=== PATIENT | female | born 2000 | race African-American/Black ===

== ENCOUNTER 2023-03-25 04:18 | Inpatient (IN) ==
[2023-03-25 04:31] VITALS: BMI 43.0
[2023-03-25 04:41] LABS: AMNISURE ROM TEST THERE IS A RUPTURE (NO RUPTURE)
[2023-03-25] MEDS ORDERED: D5 LR + PITOCIN 10 UNITS/L 10 UNITS/1,000 ML BAG IV PRN (05:30)
[2023-03-25] MEDS ORDERED: D5 1/2 NS 1,000 ML 1,000 ML IV ONE (05:41)
[2023-03-25] MEDS ORDERED: PITOCIN ONE (05:41)
[2023-03-25] MEDS ORDERED: D5 1/2 NS 1,000 mL + PITOCIN 20 UNITS/L IV 20 UNITS/1,000 ML BAG IV ONE (05:42)
[2023-03-25] MEDS ORDERED: D5 LR + PITOCIN 10 UNITS/L 10 UNITS/1,000 ML BAG IV ONE (05:42)
[2023-03-25] MEDS ORDERED: BETADINE SOLN ONE (05:42)
[2023-03-25] MEDS ORDERED: PITOCIN IVP ONE (06:12)
[2023-03-25] MEDS ORDERED: LR 1,000 ML IV 1,000 ML IV ONE (06:12)
[2023-03-25] MEDS ORDERED: REGLAN INJ 10 MG VIAL IVP PRN (06:12)
[2023-03-25] MEDS ORDERED: ZOFRAN INJ 4 MG VIAL IVP PRN (06:12)
[2023-03-25] MEDS ORDERED: STADOL INJ ONE ×2 (06:54→09:50)
[2023-03-25] MEDS: STADOL INJ IVP PRN ×2 (06:55→09:55)
[2023-03-25] MEDS ORDERED: D5 1/2 NS 1,000 ML 1,000 ML IV SCH (07:00)
--- NOTE | 2023-03-25 07:09 | DR.OB ---
OB Quick Note - Assessment/Plan Assessment/Plan: L&D 03/25/23 at 6:35am S-No complaint. O-Afebrile,VSS MIJ=024 with good LTV, +accel, no decel. CTX=q 1 1/2 to 3 min., mod. by palpation CVX=4cm/50%/-1/VTX SROM with clear fluid. IUPC and FSE placed. A-IUP at 40 5/7 weeks with SROM P-Begin pitocin augmentation Anticipate
[2023-03-25] MEDS ORDERED: XYLOCAINE 1 % (PLAIN) ONE (13:15)
[2023-03-25] MEDS ORDERED: MOTRIN TAB 800 MG PO PRN (13:34)
[2023-03-25] MEDS: D5 1/2 NS 1,000 ML 1,000 ML with PITOCIN 20 UNITS IV SCH ×4 (14:00→22:01)
[2023-03-25] MEDS ORDERED: ADACEL or BOOSTRIX TDaP VACCINE IM ONE ×2 (14:31→21:23)
[2023-03-25] MEDS ORDERED: AMBIEN PO PRN (14:31)
[2023-03-25] MEDS ORDERED: DERMOPLAST PAIN RELIEF SPRAY TOP PRN (14:31)
[2023-03-25] MEDS ORDERED: MILK OF MAGNESIA PO PRN (14:31)
[2023-03-26 05:26] LABS: HEMATOCRIT 33.3 % (36.0-47.0); HEMOGLOBIN 11.1 g/dL (12.0-16.0)
[2023-03-26] MEDS ORDERED: DEPO-PROVERA CONTRACEPTIVE INJ IM ONE (07:01)
--- NOTE | 2023-03-26 07:15 | DR.OB ---
OB Quick Note - Assessment/Plan Assessment/Plan: Delivery Note FERN PICKER 03/25/23 at 13:11 Patient complete and pushing. Head delivered over intact perineum. Nose and mouth bulb suctioned. No nuchal cord. Body delivered over intact perineum. Cord clamped x 2 and cut. Infant handed to attendant. Cord sent for gases. Placenta delivered spontaneously / intact / 3 vessel cord. No CVX tears. A second degree right lateral tear noted and repaired with 0-vicryl in usual fashion. Viable female delivered by , VTX/OA, wt=7'10" and 6/8, stable to NBN. Mother stable to RR. YEU=[id number].
[2023-03-26] MEDS ORDERED: PRENATAL PLUS PO SCH (09:00)
[2023-03-26 09:17] VITALS: O2SAT 97
[2023-03-26 12:18] VITALS: BP 109/56; PULSE 94; TEMP 98.3
== END 2023-03-26 14:55 | disposition home or self-care (01) | DRG 807 ==
LOC: ER 04:18 → LD 05:17 → MED/SURG 15:14
PROVIDERS: ADMIT Specialist; ATTEND Specialist
DX: Z37.0 Single live birth; O98.311 Other infections with a predominantly sexual mode of transmission complicating pregnancy, first trimester; O26.893 Other specified pregnancy related conditions, third trimester; Z3A.40 40 weeks gestation of pregnancy; O70.1 Second degree perineal laceration during delivery